=== PATIENT | female | born 1970 | race Caucasian/White ===

== ENCOUNTER 2020-01-21 13:52 | Emergency (ER) | payer OTHER, SELFPAY ==
[2020-01-21 14:14] VITALS: BP 151/97; PULSE 101; RESP 16; TEMP 37.4; O2SAT 99; BMI 31.6
--- NOTE | 2020-01-21 14:42 | HMH.EDUTC ---
[facility] [place] Disposition Clinical Impression: Viral syndrome, Exposure to COVID-19 virus Disposition: Home, Self-Care Condition on Discharge: Good Instructions: DI for Viral Syndrome, Preventing the Spread of Coronavirus Discharge Instructions Additional Instructions: Drink plenty of fluids. Take tylenol or ibuprofen for pain or fever. Take the medications as directed. Follow up with your regular doctor. GO TO THE ER FOR ANY WORSENING SYMPTOMS FOLLOW THE DIRECTIONS ON THE COVID-19 HAND OUT THAT WE GAVE YOU REGARDING SELF-ISOLATION UNTIL YOU KNOW YOUR COVID-19 RESULTS Prescriptions: Ondansetron [Zofran 4mg ODT] 4 mg PO Q8HP PRN #20 tab.rapdis PRN Reason: Nausea Transmission Status: Received by [id number] Azithromycin [Z-Ashish 250mg Tab*] 250 mg PO UD DOSE PK #6 tab Transmission Status: Received by [id number] Referrals: Yodit Robbins [Primary Care Provider] - Forms: Work/School Release Time of Disposition: 14:52 Medical Decision Making - Medical Records Medical records reviewed: No: I reviewed the patient's medical records. - Luis Inquiry Pt receiving controlled substance: No Vital Signs: 01/21/20 14:14 01/21/20 15:03 Temperature 99.4 F 99.4 F Temperature Source Oral Pulse Rate 101 H Pulse Rate [Right Brachial] 101 H Respiratory Rate 16 16 Blood Pressure 151/97 H Blood Pressure [Right Arm] 151/97 H Blood Pressure Mean [Right Arm] 115 Blood Pressure Source [Right Arm] Automatic Cuff Blood Pressure Position [Right Arm] Sitting 02 Sat by Pulse Oximetry 99 - Lab Data Lab results reviewed: Yes: I reviewed the patient's lab results. [facility] [place] HPI - General Stated complaint: wants covid test Time Seen by Provider: 01/21/20 14:43 Mode of Arrival: Ambulatory Source of Information: Patient Limitations: No Limitations Description of Symptoms (Recalled from Triage Doc. by RN): PATIENT C/O VOMITING, NAUSEA, DIZZINESS, COLD SWEATS, AND DIARRHEA SINCE SUNDAY. SHE WORKS AT [employer] WHERE THERE ARE [employer] POSITIVE COVID CASES HEENT Symptoms (Recalled from RN notes): Yes Resp Symptoms (Recalled from RN notes): No Skin Symptoms (Recalled from RN notes): No MS Symptoms (Recalled from RN notes): No Functional Status (Recalled from RN notes): WNL - History of Present Illness Provider Complaint: She states that she has been having body aches, chilling, fever, and gi upset since last week. 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 She has not been tested for COVID recently. - Related Data Previous Rx's Medication Instructions Recorded Azithromycin [Z-Ashish 250mg Tab*] 250 mg PO UD DOSE PK #6 tab 01/21/20 Ondansetron [Zofran 4mg ODT] 4 mg PO Q8HP PRN #20 tab.rapdis 01/21/20 Allergies Allergy/AdvReac Type Severity Reaction Status Date / Time cephalexin [From Keflex] Allergy Verified 01/21/20 14:21 - Worker's Comp Is this a Worker's Comp case?: No [facility] History - Hepatitis A Screen Drug use history?: No High risk sexual behaviors?: No History of sexually transmitted infection?: No Currently employed?: No Childcare worker?: No Do you have indoor plumbing?: Yes Do you have electricity?: Yes Attestation statement:: This patient has been screened for Hepatitis A risk factors. I have reviewed the patient's past medical history: Yes - Social History Alcohol Intake: never Occupational Status: other ROS Obtained: Yes All systems reviewed & no additional complaints - Constitutional Constitutional: Reports chills, Reports fever(s), Reports poor appetite, Reports malaise - Eyes Eyes: Denies eye discharge - ENT Ears, Nose, Mouth, and Throat: Reports as per HPI, Denies dizziness, Denies otalgia, Reports sore throat - Cardiovascular Cardiovascular: Denies chest pain - Respiratory Respiratory: Yes chest congestion, Yes cough Physical Exam - General General appearance: alert, in no apparent distress - Head
[2020-01-21 15:03] VITALS: BP 151/97; PULSE 101; RESP 16; TEMP 37.4; O2SAT 99
--- NOTE | 2020-01-22 15:33 | PC.NURSE ---
Patient called for COVID results. Notified patient that she is positive. Educated patient on self quarantine.
== END 2020-01-21 15:05 | disposition home or self-care (01) ==
PROVIDERS: Emergency Provider Nurse Practitioner Family; PCP Family Medicine
DX: Z20.828 Contact with and (suspected) exposure to other viral communicable diseases (principal); B34.9 Viral infection, unspecified
CPT/HCPCS: 99201; U0003